=== PATIENT | female | born 1985 | race Caucasian/White ===

== ENCOUNTER 2016-07-25 15:26 | Emergency (ER) | payer OTHER ==
[~2016-07-25 15:26] MED LIST: BACTRIM DS TABL1 TA1 PO; DIFLUCAN PO; DIFLUCAN100 MG PO; FLAGYL PO; NO MEDICATIONS; PYRIDIUM PO; ROBAXIN 750750 MG PO; SKELAXIN PO; ULTRAM PO; ZITHROMAX PO; ZOFRAN PO; ZYRTEC10 M2 PO
[2016-07-25] MEDS ORDERED: ZYRTEC10 M1 PO (15:50)
== END 2016-07-25 16:29 | disposition home or self-care (01) ==
LOC: SED 15:26
DX: L03.116 Cellulitis of left lower limb (principal); Z79.899 Other long term (current) drug therapy
CPT/HCPCS: 87070; 87077; 87186; 87205; 99282